=== PATIENT | male | born 1945 | race Caucasian/White ===

== ENCOUNTER 2020-12-12 07:59 | Observation (INO) | payer OTHER ==
[~2020-12-12] VITALS: Ht 175.3 cm; Wt 86.2 kg
--- NOTE | ~2020-12-12 | OP ---
[address] [address] OPERATIVE REPORT Name: BILL CHRISTIANSON Room: [address]R.#: [id number] Admission: 12/12/20 Attend Phys: Flakito Naik MD Discharge: 12/14/20 Date of : 47 Report #: [id number] THIS REPORT FOR: cc: JOSIAS GRUBBS MD, CHADWICK MD Haggard, Kent L MD ~ DATE OF SURGERY: 12/13/2020 PREOPERATIVE DIAGNOSES: Bladder calculi, left ureteral stone with hydronephrosis, bilateral nonobstructing renal calculi. POSTOPERATIVE DIAGNOSES: Bladder calculi, left ureteral stone with hydronephrosis, bilateral nonobstructing renal calculi with trilobar prostatic hyperplasia with friable prostate. PROCEDURES: Cystolitholapaxy of stone, less than 2.5 cm, fulguration of prostatic fossa, left retrograde pyelogram, left ureteroscopy, left ureteral stent placement and Dior catheterization. STAFF SURGEON: Jj Galaviz MD GEAR KEEPER: None. ANESTHESIA: General. ESTIMATED BLOOD LOSS: 5 mL. COMPLICATIONS: None. SPECIMEN: Bladder stone fragments. DRAIN: A 26 cm x 6-Chadian left ureteral stent and a 20-Chadian 3-way Dior catheter. INDICATIONS: The patient is a 75-year-old white male with history of kidney stones who presented with left-sided flank pain with nausea and vomiting. CT scan confirmed a 5 mm mid left ureteral stone. He was already on tamsulosin for his prostate. His pain was actually quite a bit better. He was observed overnight due to some cardiac arrhythmias. He was counseled on options this morning regarding ESWL versus stone extraction. His creatinine was elevated. White count was coming down. He elected for cystolitholapaxy of his bladder calculi, left retrograde pyelogram, left ureteroscopy, possible holmium laser lithotripsy, possible placement of left ureteral stent. After risks and benefits of the procedure explained, informed consent was obtained. OPERATIVE PROCEDURE: The patient was taken to the operating room, [place] [address] OPERATIVE REPORT Name: BILL CHRISTIANSON [address]: [address]#: [id number] Admission: 12/12/20 Attend Phys: Flakito Naik MD Discharge: 12/14/20 Date of : 47 Report #: [id number] placed in the dorsal lithotomy position under adequate general anesthesia, he was sterilely prepped and draped in sterile fashion exposing only the genitalia. He received his Ancef antibiotic therapy as prescribed. A 22-Chadian cystoscope was placed into the urethra with an aid of an obturator due to some narrowing in his fossa navicularis. The remainder part of the urethra was normal. Sphincter was intact. Prostate showed marked trilobar prostatic hyperplasia with marked median lobe elevation. The bladder stones were discovered on the back side of the median lobe. I had to put pressure on the median lobe just to get access to laser these jackstones that were present. A 1000 micron holmium laser fiber was used to break up the stone into multiple fragments and irrigated with an [employer] evacuator. In the process of reaching it over the top of the median lobe and applying pressure to median lobe, he did develop some bleeding from the friable prostate. The cystoscope was removed. [place] sounds from 22-Chadian to 28-Chadian were used to dilate the urethra. A 26-Chadian continuous flow sheath with [place] obturator was blindly inserted through the urethra into the bladder. Plasma loop electrode was used to just fulgurate just bleeding areas in the prostate and actually took a couple swipes through the prostate about the 4 o'clock position just to expose the left ureteral orifice, which was unable to identify. This area was fulgurated. The resectoscope was removed. A 22-Chadian cystoscope was put back in place. An 8-Chadian cone tip catheter was placed in left ureteral orifice and a retrograde pyelogram performed showing a filling defect about L3 level with not much contrast getting more proximally consistent with a stone seen on CT scan, was able to manipulate an 0.035 Glidewire up the left ureter at the level of the kidney. Cystoscope was removed and a 4.5 Chadian ____ to a 6.5-Chadian, both semi-rigid ureteroscope advanced through the urethra up the left ureter, really could not get through about the iliac vessels, we could not get any much further, just kind of medial deviation ____ was needed. Semirigid scope was gently removed. Cystoscope was backloaded over the wire and a 26 cm x 6-Chadian ureteral stent was put in place and positioned with good coil in the level of kidney, good coil in the bladder. The cystoscope was removed. There appeared to be some bleeding going on near the bladder neck again. The resectoscope was put in place with an obturator. I was able to identify the area about 3 o'clock position of the bladder neck. I was able to fulgurate the plasma button. Meticulous hemostasis was obtained. The cystoscope was removed. A 20-Chadian 3-way Dior catheter was put in place and secured with 30 mL sterile water, again began to irrigate, but was just kind of a Hutchinson Patric-Aid. Despite repeat irrigation, it was felt like there was something else bleeding. Catheter was deflated and pulled out. A repeat resectoscope was put in place with Lancaster obturator. Obturator was removed. An Rivera resectoscope was put in place with a plasma button. I again did find the prostatic area of the bleeding again at 3 o'clock position. This was fulgurated. Meticulous hemostasis verified. No other bleeding was identified. No clots in the bladder. No prostate chips or bladder calculi identified. Cystoscope was removed. A 20-Chadian 3-way Dior catheter was put in place and secured with 30 mL of sterile water that is clear with a very faint pink tinge. [place] [address] OPERATIVE REPORT Name: BILL CHRISTIANSON Room: [address] [place] Bey#: [id number] Admission: 12/12/20 Attend Phys: Flakito Naik MD Discharge: 12/14/20 Date of : 47 Report #: [id number] procedure extremely well. He was extubated in the operating room, transferred to [facility] with assistance and went to recovery in stable condition. I anticipate catheter out tomorrow and voiding trial tomorrow if he is tolerating the stent and we could see the stone pass through the ESWL. If he is not tolerating the stent or cannot see the stone, then ureteroscopic stone extraction likely next week. By: 1630 [id number] Deena Galaviz MD /nt
[~2020-12-12 07:59] MED LIST: ASPIR 8181 MG PO; GLUCOSAMINE HC500 MG PO; MAGOX 400400 MG PO; PERCOCET 5-3251 EACH PO; PREDNISONE 10 M10 M1 PO; VICODIN 5-5001 EACH PO; ZPAK PO
[2020-12-12 08:28] VITALS: BP 156/52
[2020-12-12] MEDS ORDERED: FLOMAX0.4 MG PO (08:32)
[2020-12-12] MEDS ORDERED: LIPITOR 20 MG T20 M1 PO (08:33)
[2020-12-12 08:45] LABS: HEMATOCRIT 45.7 % (42.0-52.0); HEMOGLOBIN 15.6 gm/dL (14.0-18.0); MCHC 34.2 g/dL (28.0-37.0); MCV 87.8 fL (80.0-100.0); MPV 7.3 fl. (7.2-11.1); NUCLEATED RBCS 0 /100WBC; PLATELET COUNT* 261 thou/uL (150-400); RBC 5.21 mil/uL (4.50-6.00); RDW-CV 13.3 % (10.5-14.5); WBC 20.8 thou/uL (4.0-11.0)
[2020-12-12 08:54] LABS: CALCIUM 9.6 mg/dL (8.5-10.1); CREATININE 1.7 mg/dL (0.6-1.3); POTASSIUM 4.3 mmol/L (3.5-5.1)
[2020-12-12 08:58] LABS: ALBUMIN 4.3 g/dL (3.4-5.0); TOTAL BILIRUBIN 0.8 mg/dL (<0.1-1.0); TOTAL PROTEIN 7.9 g/dL (6.4-8.2)
[2020-12-12 09:21] LABS: ABSOLUTE NEUTROPHILS 18.7 thou/uL (1.6-8.1); PLATELET ESTIMATE ADEQUATE
--- NOTE | 2020-12-12 10:58 | EKG ---
[place] [address] ELECTROCARDIOGRAM REPORT Name: LOYTENNILLEBILL Yanez Room: [facility]#: [id number] Admission: 12/12/20 Attend Phys: Discharge: Date of : 47 Date of Service: 12/12/20 0840 Report #: [id number] THIS REPORT FOR: //name// [facility] ED Test Date: 2020-12-12 Test Time: 08:40:03 Pat Name: BILL CHRISTIANSON Department: Room: Gender: Business Services Analyst: : 1945 Requested By: Jamey Forte Order Number: [id number] MD: Yasir Montano Measurements Intervals [place] Rate: 43 P: 0 NJ: 174 QRS: -57 QRSD: 147 T: -25 QT: 489 QTc: 414 Interpretive Statements Sinus bradycardia RBBB and LAFB Left ventricular hypertrophy Abnormal T, consider ischemia, inferior leads Compared to ECG 08/08/2010 06:08:41 Left anterior fascicular block now present Right bundle-branch block now present Left ventricular hypertrophy now present T-wave abnormality now present Possible ischemia now present Sinus rhythm no longer present Electronically Signed On 12-12-2020 10:58:35 CDT by Yasir Montano [email or web address] <ELECTRONICALLY SIGNED> By: Yasir Montano MD, [facility] 12/12/20 1058 9 Yasir Montano MD, [facility] /EPI
[2020-12-12 12:06] LABS: URINE BILIRUBIN NEGATIVE (Negative); URINE BLOOD 2+ (Negative); URINE CLARITY CLEAR; URINE COLOR YELLOW; URINE GLUCOSE-RANDOM NEGATIVE (Negative); URINE KETONES TRACE (Negative); URINE LEUKOCYTES-REFLEX NEGATIVE (Negative); URINE NITRITE-REFLEX NEGATIVE (Negative); URINE PROTEIN NEGATIVE (Negative); URINE UROBILINOGEN 0.2 E.U./dl (0.2-1.0)
[2020-12-12 12:11] LABS: SQUAMOUS 0-3 Few /LPF (0-3)
[2020-12-12 12:12] LABS: BACTERIA-REFLEX 1-9 Few /HPF (None Seen); CASTS None Seen /LPF (None Seen); CRYSTALS None Seen /LPF (None Seen); MUCUS 0-3 Light strn/LPF (None Seen); URINE WBC-REFLEX None Seen /HPF (0-5)
[2020-12-12 15:00] VITALS: BP 106/42
[2020-12-12 20:06] VITALS: BP 124/64
[2020-12-13] VITALS (7 sets, daily range): BP systolic 114–137; BP diastolic 61–76
[2020-12-13 03:22] LABS: ABSOLUTE BASOPHILS 0.1 thou/uL (0.0-0.2); ABSOLUTE LYMPHOCYTES 2.1 thou/uL (0.8-5.3); ABSOLUTE MONOCYTES 0.8 thou/uL (0.0-1.2); ABSOLUTE NEUTROPHILS 11.1 thou/uL (1.6-8.1); BASOPHILS 0.6 %; EOSINOPHILS 0.3 %; HEMATOCRIT 42.3 % (42.0-52.0); HEMOGLOBIN 13.9 gm/dL (14.0-18.0); LYMPHOCYTES 14.8 %; MCH 29.7 pg (26.0-34.0); MCHC 32.9 g/dL (28.0-37.0); MCV 90.2 fL (80.0-100.0); MONOCYTES 5.8 %; MPV 7.4 fl. (7.2-11.1); NUCLEATED RBCS 0 /100WBC; PLATELET COUNT* 215 thou/uL (150-400); POLYS 78.5 %; RBC 4.69 mil/uL (4.50-6.00); RDW-CV 13.3 % (10.5-14.5); WBC 14.1 thou/uL (4.0-11.0)
[2020-12-13 04:10] LABS: ANION GAP 9 mmol/L (7-16); BUN 20 mg/dL (7-18); CALCIUM 8.7 mg/dL (8.5-10.1); CHLORIDE 107 mmol/L (98-107); CHOLESTEROL 137 mg/dL (<200); CO2 25 mmol/L (21-32); CREATININE 1.8 mg/dL (0.6-1.3); GLUCOSE 116 mg/dL (70-99); HDL CHOLESTEROL 37 mg/dL (>40); LDL CHOLESTEROL 81 mg/dL (<100); POTASSIUM 4.2 mmol/L (3.5-5.1); SODIUM 141 mmol/L (136-145); TC:HDL 3.7 Ratio (Not establshd); TRIGLYCERIDE 97 mg/dL (<150); VLDL 19 mg/dL (<40)
[2020-12-13 04:19] LABS: SERUM ASSESSMENT Clear
--- NOTE | 2020-12-13 11:11 | CON ---
[address] [address] CONSULTATION Name: LOYTENNILLEBILL Beau Room: [address] [place] .R.#: [id number] Admission: 12/12/20 Attend Phys: Flakito Naik MD Discharge: Date of : 47 Report #: [id number] THIS REPORT FOR: cc: RIKKI GRUBBS MD, CHADWICK MD Blick, David R. MD [facility] ~ cc: Rikki Grubbs DATE OF CONSULTATION: 12/12/2020 CARDIOLOGY CONSULTATION HISTORY OF PRESENT ILLNESS: The patient is a 75-year-old white male who I was asked to see in the Emergency Room today after he was noted to be bradycardic. The patient has no previous history of heart disease. He actually notes that years ago prior to having cataract surgery in 1998, he was noted to have an abnormal ECG. He apparently saw a hull inspector and had a treadmill test it was unremarkable. He stays very active, raising cattle. He denies any recent lightheadedness, palpitations, syncope. He does have occasional chest tightness, although it does not radiate. It is not related to exertion or meals. He notes occasional episodes when his heart rate will increase. However, he denies ever being told that he has a slow heart rate or a heart murmur. The patient has a history of kidney stones that he has passed on his own. However, yesterday he felt some discomfort in his testicle, it went around to his left flank. He drove himself to the Emergency Room today and was found to have a kidney stone. He was admitted for further evaluation and treatment. He was noted to be bradycardic and cardiology consultation requested. PAST MEDICAL HISTORY: He has had elbow surgery, he has a history of prostatism, hyperlipidemia. CURRENT MEDICATIONS: Consists of Lipitor, Flomax. ALLERGIES: He has no known drug allergies. FAMILY HISTORY: His brother had a pacemaker. SOCIAL HISTORY: He is . 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 No smoking. Rarely drinks beer. REVIEW OF SYSTEMS: He has no history of stroke, asthma, liver disease, kidney disease. He did note some bright red blood in his stool recently. He is scheduled for colonoscopy. No history of cancer, chronic skin condition, [place] [address] CONSULTATION Name: BILL CHRISTIANSON Beau Room: [address]#: [id number] Admission: 12/12/20 Attend Phys: Flakito Naik MD Discharge: Date of : 47 Report #: [id number] PHYSICAL EXAMINATION: GENERAL: Revealed an elderly male who appears in no distress. VITAL SIGNS: Blood pressure is 110/60, pulse is 50. He was afebrile. HEENT: He was anicteric. Conjunctivae pink. Mucosa is moist. NECK: Veins not distended. No carotid bruits. Neck is supple. CHEST: Clear to auscultation. HEART: Regular bradycardia. There is grade 4 late peaking systolic ejection murmur along the left sternal border. ABDOMEN: Soft. EXTREMITIES: Had no edema. Posterior tibial pulse 1+ bilaterally. SKIN: Cool and dry. NEUROLOGICAL: Nonfocal. DIAGNOSTIC AND LABORATORY DATA: ECG showed sinus bradycardia, left anterior fascicular block and a right bundle branch block. His workup in the Emergency Room, the patient had a CT scan of the abdomen and pelvis that showed fatty infiltration of the liver, bilateral kidney stones, no hydronephrosis. There was hydronephrosis of the left kidney, small kidney stones also noted in the bladder. Prostate was enlarged. He had a BUN 21, creatinine 1.7. Troponin less than 0.06. Hemoglobin 15.6. IMPRESSION AND RECOMMENDATIONS: 1. Sinus bradycardia, asymptomatic. If he develops symptoms, he would require pacemaker. 2. Aortic stenosis. Recommend echocardiogram. Asymptomatic. 3. Prostatism. 4. Hyperlipidemia. The patient is on a statin drug. 5. Kidney stones. The patient might require surgery. He appears to have no cardiac contraindication to surgery at this time. 6. Chronic kidney disease. <ELECTRONICALLY SIGNED> By: Yasir Montano MD, FACC 12/13/20 1111 1556 2124Dgladis Montano MD, FAC /nt
--- NOTE | 2020-12-13 14:44 | 2DMMODE ---
[place] [address] 2 D/M-MODE ECHOCARDIOGRAM Name: LOYTENNILLEBILL Room: [address] [place]#: [id number] Admission: 12/12/20 Attend Phys: Flakito Naik, Discharge: Date of : 47 Date of Service: 12/13/20 1444 Report #: [id number] THIS REPORT FOR: cc: JOSIAS GRUBBS MD, CHADWICK MD Blick,Yasir Du MD [facility] ~ APPROVED REPORT Study performed: 12/13/2020 11:41:27 EXAM: Comprehensive 2D, Doppler, and color-flow Echocardiogram Patient Location: In-Patient Room #: [facility] Status: routine BSA: 2.02 HR: 57 bpm BP: 135/76 mmHg Rhythm: NSR Other Information Study Quality: Good Indications Murmur 2D Dimensions IVSd: 9.22 (7-11mm) LVOT Diam: 22.12 (18-24mm) LVDd: 44.75 mm PWd: 9.87 (7-11mm) Ascending Ao: 43.10 (22-36mm) LVDs: 31.62 (25-40mm) Aortic Root: 37.20 mm Volumes Left Atrial Volume (Systole) LA ESV Index: 39.70 mL/m2 Aortic Valve AoV Peak Kiran.: 2.40 m/s AO Peak Gr.: 22.95 mmHg LVOT Max P.84 mmHg AO Mean Gr.: 11.96 mmHg LVOT Mean P.00 mmHg LVOT Max V: 1.31 m/s AO V2 VTI: 45.18 cm LVOT Mean V: 0.78 m/s PETER (VTI): 2.48 cm2 LVOT V1 VTI: 29.20 cm AI [place]: 2.66 m/s2 [place] [address] 2 D/M-MODE ECHOCARDIOGRAM Name: BILL CHRISTIANSON Room: [address] MEsthelaREsthela#: [id number] Admission: 12/12/20 Attend Phys: Flakito Naik, Discharge: Date of : 47 Date of Service: 12/13/20 1444 Report #: [id number] AI PHT: 458.50 ms Mitral Valve E/A Ratio: 1.59 MV Decel. Time: 196.83 ms MV E Max Kiran.: 0.97 m/s MV PHT: 57.08 ms MVA (PHT): 3.85 cm2 TDI E/Lateral E': 6.47 E/Medial E': 10.78 Medial E' Kiran.: 0.09 m/s Lateral E' Kiran.: 0.15 m/s Pulmonary Valve PV Peak Kiran.: 1.13 m/s PV Peak Gr.: 5.09 mmHg Tricuspid Valve RAP Estimate: 5.00 mmHg TR Peak Gr.: 23.27 mmHg RVSP: 28.00 mmHg PA Pressure: 28.00 mmHg Left Ventricle The left ventricle is normal size. There is normal LV segmental wall motion. There is normal left ventricular wall thickness. Left ventricular systolic function is normal. The left ventricular ejection fraction is within the normal range. LVEF is 55-60%. Grade IV - fixed restrictive diastolic dysfunction. Right Ventricle The right ventricle is normal size. The right ventricular systolic function is normal. Atria Left atrium is mildly dilated. The right atrium size is normal. Aortic Valve Aortic valve is calcified. Mild aortic regurgitation. There is mild aortic valvular stenosis. Mitral Valve The mitral valve is normal in structure. Mild mitral regurgitation. No evidence of mitral valve stenosis. [place] [address] 2 D/M-MODE ECHOCARDIOGRAM Name: BILL CHRISTIANSON Room: [address]#: [id number] Admission: 12/12/20 Attend Phys: Flakito Naik, Discharge: Date of : 47 Date of Service: 12/13/20 1444 Report #: [id number] The tricuspid valve is normal in structure. Mild tricuspid regurgitation. Pulmonic Valve The pulmonary valve is normal in structure. Trace pulmonic regurgitation. Great Vessels Aortic root is mildly dilated. IVC is normal in size and collapses >50% with inspiration. Pericardium There is no pericardial effusion. <Conclusion> LVEF is 55-60%. Left atrium is mildly dilated. Mild aortic regurgitation. There is mild aortic valvular stenosis. Mild mitral regurgitation. <ELECTRONICALLY SIGNED> By: Yasir Montano MD, [facility] 12/13/20 1444 1444 1444 Yasir Montano MD, FACC /INF
--- NOTE | 2020-12-13 19:43 | NUR ---
PT A/OX4, AT BEDSIDE MOST OF THE SHIFT AND FOR SURGERY. PT ADMITTED FROM ER ABOUT 0930 AND WENT TO SURGERY [facility] NOON. PT CAME BACK WITH CBI RUNNING, NO C/O OF PAIN POST OP, LUA DRAINAGE RED TINGED WITH NO CLOTS OBSERVED.
[2020-12-14] VITALS: BP 111/59
[2020-12-14 04:00] VITALS: BP 120/60
[2020-12-14 04:15] LABS: CALCIUM 8.5 mg/dL (8.5-10.1); CREATININE 1.4 mg/dL (0.6-1.3); POTASSIUM 4.5 mmol/L (3.5-5.1)
[2020-12-14 04:26] LABS: ABSOLUTE LYMPHOCYTES 0.9 thou/uL (0.8-5.3); ABSOLUTE MONOCYTES 0.5 thou/uL (0.0-1.2); ABSOLUTE NEUTROPHILS 8.8 thou/uL (1.6-8.1); BASOPHILS 0.1 %; HEMATOCRIT 38.7 % (42.0-52.0); LYMPHOCYTES 9.1 %; MCH 30.1 pg (26.0-34.0); MCHC 33.6 g/dL (28.0-37.0); MCV 89.6 fL (80.0-100.0); MONOCYTES 5.2 %; MPV 7.7 fl. (7.2-11.1); NUCLEATED RBCS 0 /100WBC; PLATELET COUNT* 200 thou/uL (150-400); POLYS 85.6 %; RBC 4.32 mil/uL (4.50-6.00); RDW-CV 13.2 % (10.5-14.5); WBC 10.3 thou/uL (4.0-11.0)
[2020-12-14 08:00] VITALS: BP 131/56
[2020-12-14] MEDS ORDERED: CEFUROXIME500 MG PO (11:01)
[2020-12-14] MEDS ORDERED: NORCO5 PO (11:02)
[2020-12-14 12:00] VITALS: BP 155/62
[2020-12-14 13:01] VITALS: BP 135/76
[2020-12-20 15:07] LABS: STONE CA OXALATE DIHYDRATE 20 % (()); STONE CA OXALATE MONOHYDRATE 70 % (()); STONE COLOR Brown (()); STONE SIZE 5x4 mm (()); STONE URIC ACID 10 % (()); STONE WEIGHT 417 mg (())
== END 2020-12-14 18:35 | disposition home or self-care (01) ==
LOC: M.ERS 07:59 → M.TBA-ER 11:01 → M.2W 11:01 → M.TBA-ER 23:07 → M.2W 12-13 09:40
PROVIDERS: Family Medicine; ADMIT Internal Medicine; ATTEND Internal Medicine
DX: N13.2 Hydronephrosis with renal and ureteral calculous obstruction (principal); D72.829 Elevated white blood cell count, unspecified; Z20.822 Contact with and (suspected) exposure to COVID-19; R00.1 Bradycardia, unspecified; R65.11 Systemic inflammatory response syndrome (SIRS) of non-infectious origin with acute organ dysfunction; E78.5 Hyperlipidemia, unspecified; N17.9 Acute kidney failure, unspecified; Z79.899 Other long term (current) drug therapy